=== PATIENT | female | born 1955 | race Caucasian/White ===

== ENCOUNTER 2018-04-23 00:42 | Observation (INO) | payer OTHER ==
[~2018-04-23] VITALS: Ht 167.6 cm; Wt 85.3 kg
[2018-04-23 00:47] VITALS: BP 149/88
[2018-04-23] MEDS ORDERED: EFFEXOR XR75 MG PO (00:55)
[2018-04-23] MEDS ORDERED: LISINOPRIL10 MG PO (00:55)
[2018-04-23] MEDS ORDERED: MOBIC7.5 MG PO (00:55)
[2018-04-23] MEDS ORDERED: AMBIEN 5 MG TABL5 M1 PO (00:56)
[2018-04-23 01:13] LABS: URINE BILIRUBIN NEGATIVE (Negative); URINE BLOOD TRACE (Negative); URINE CLARITY CLEAR; URINE COLOR YELLOW; URINE GLUCOSE-RANDOM NEGATIVE (Negative); URINE KETONES NEGATIVE (Negative); URINE LEUKOCYTES-REFLEX 3+ (Negative); URINE NITRITE-REFLEX NEGATIVE (Negative); URINE PROTEIN TRACE (Negative); URINE UROBILINOGEN 0.2 E.U./dl (0.2-1.0)
[2018-04-23 01:15] LABS: ABSOLUTE BASOPHILS 0.1 thou/uL (0.0-0.2); ABSOLUTE EOSINOPHILS 0.2 thou/uL (0.0-0.7); ABSOLUTE LYMPHOCYTES 2.4 thou/uL (0.8-5.3); ABSOLUTE MONOCYTES 0.6 thou/uL (0.0-1.2); ABSOLUTE NEUTROPHILS 6.9 thou/uL (1.6-8.1); EOSINOPHILS 1.9 %; HEMOGLOBIN 12.9 gm/dL (12.0-15.0); LYMPHOCYTES 23.3 %; MCH 30.8 pg (26.0-34.0); MCHC 34.7 g/dL (28.0-37.0); MCV 88.7 fL (80.0-100.0); MPV 7.6 fl. (7.2-11.1); NUCLEATED RBCS 0 /100WBC; PLATELET COUNT* 242 thou/uL (150-400); POLYS 67.8 %; RBC 4.17 mil/uL (4.20-5.00); RDW-CV 13.4 % (10.5-14.5); WBC 10.1 thou/uL (4.0-11.0)
[2018-04-23 01:23] LABS: ANION GAP 14 mmol/L (7-16); BUN 26 mg/dL (7-18); CALCIUM 9.2 mg/dL (8.5-10.1); CHLORIDE 104 mmol/L (98-107); CO2 21 mmol/L (21-32); CREATININE 1.1 mg/dL (0.6-1.3); GLUCOSE 139 mg/dL (70-99); SODIUM 139 mmol/L (136-145)
[2018-04-23 01:29] LABS: ALKALINE PHOSPHATASE 106 U/L (46-116); LIPASE 172 U/L (73-393); SGOT 17 U/L (15-37); SGPT 23 U/L (30-65); TOTAL BILIRUBIN 0.5 mg/dL (<0.1-1.0); TOTAL PROTEIN 7.1 g/dL (6.4-8.2); TROPONIN-I LEVEL <0.06 ng/mL (<0.06)
[2018-04-23 01:31] LABS: BACTERIA-REFLEX >30 Many /HPF (None Seen); CASTS None Seen /LPF (None Seen); CRYSTALS None Seen /LPF (None Seen); MUCUS 4-6 Moderate strn/LPF (None Seen); SQUAMOUS 0-3 Few /LPF (0-3); TRANSITIONAL EPITHEL CELL 0-3 Few /LPF (None Seen); URINE RBC 3-10 Few /HPF (0-2); WBC CLUMPS Few (None Seen)
[2018-04-23 03:50] VITALS: BP 145/79
[2018-04-23 03:55] VITALS: BP 156/86
[2018-04-23 08:00] VITALS: BP 145/88
[2018-04-23 15:10] VITALS: BP 111/70
--- NOTE | 2018-04-23 15:20 | EKG ---
[place] [address] ELECTROCARDIOGRAM REPORT Name: NELY SALES Room: [address] IN [facility].#: [id number] Admission: 04/23/18 Attend Phys: Erich Suarez MD Discharge: Date of : 55 Report #: [id number] THIS REPORT FOR: //name// [facility] ED Test Date: 2018-04-23 Test Time: 01:14:00 Pat Name: NELY SALES Department: Room: Gender: Gra[employer] Leader: [place] : 1955 Requested By: Juan Manuel Baca Order Number: [id number] MD: Guero Key Measurements Intervals [place] Rate: 88 P: 68 RI: 139 QRS: 33 QRSD: 85 T: 34 QT: 365 QTc: 442 Interpretive Statements Sinus rhythm Atrial premature complex Compared to ECG 08/30/2009 19:04:42 Atrial premature complex(es) now present Electronically Signed On 04-23-2018 15:20:44 CDT by Guero Key [email or web address] <ELECTRONICALLY SIGNED> By: Guero Key MD, [facility] 04/23/18 1520 [id number] Guero Key MD, [facility] /EPI
[2018-04-23] MEDS ORDERED: FLOMAX0.4 MG PO (17:47)
[2018-04-23] MEDS ORDERED: CIPRO500 MG PO (17:52)
[2018-04-23] MEDS ORDERED: NORCO 5-325 TA1 EACH PO (17:55)
[2018-04-23 17:57] VITALS: BP 111/70
--- NOTE | 2018-04-24 17:57 | CON ---
[address] [address] CONSULTATION Name: NELY SALES Room: [address] Angela#: [id number] Admission: 04/23/18 Attend Phys: Erich Suarez MD Discharge: 04/23/18 Date of : 55 Report #: [id number] THIS REPORT FOR: //name// CC: Erich Briones DATE OF SERVICE: 04/23/2018 REFERRING PHYSICIAN: Dr. Uribe. REASON FOR CONSULTATION: Right distal ureteral calculus and flank pain. HISTORY OF PRESENT ILLNESS: This is a 62-year-old female with no prior stone history. She had acute onset of right-sided flank and lower quadrant pain less than 24 hours ago, accompanied by frequency, urgency and stranguria. This was accompanied by nausea and vomiting. She presented to the Emergency Department and was diagnosed with a right distal ureteral calculus on CT scan. She was admitted for pain control and further management. Urology was consulted. She says she has been pain free for almost 12 hours with no pain medicine. She denies dysuria or gross hematuria. Denies fever or chills. Denies any other recent illness. She has had no prior kidney or urinary tract problems. PAST MEDICAL HISTORY: As above. She also has history of depression, hypertension, and arthritis. PAST SURGICAL HISTORY: Includes cholecystectomy. ALLERGIES: INCLUDE ERYTHROMYCIN. FAMILY HISTORY: She reports a half-sister has a history of stones. She does not know any other renal disease in the family. SOCIAL HISTORY: She denies use of tobacco or alcohol. She is and accompanied by her . REVIEW OF SYSTEMS: As per the history of present illness. No chest pain, shortness of breath, or palpitations. No weakness. PHYSICAL EXAMINATION: VITAL SIGNS: Temperature 36.5, pulse 86, respirations 16, blood pressure 111/70. GENERAL: This is a 62-year-old female, in no acute distress. She is awake, alert and oriented x 3. She answers questions appropriately. HEENT: Normocephalic, atraumatic. Extraocular movements are intact. Oropharynx is clear. NECK: [place] [address] CONSULTATION Name: NELY SALES Room: [address]#: [id number] Admission: 04/23/18 Attend Phys: Erich Suarez MD Discharge: 04/23/18 Date of : 55 Report #: [id number] RESPIRATORY: Effort and excursion are normal. CARDIAC: Rhythm is regular. ABDOMEN: Soft, nontender, nondistended. Bladder is nontender and nonpalpable. Spine and costovertebral angles are nontender. Exam does not reproduce her symptoms. EXTREMITIES: Warm. Moves all extremities well. No peripheral edema. Radial pulses are palpable. LABORATORY DATA: Include sodium 139, potassium 3.0, chloride 104, CO2 of 21, BUN 6, creatinine 1.1, glucose 139. Hemoglobin 12.9, platelet count 242,000, white count 10.1. Urinalysis reveals 3-10 red cells, 16-25 white cells, greater than 30 bacteria and some epithelial cells, possibly representing contaminant. Culture on that is pending. She has been started on Cipro empirically. Contrast CT scan of the abdomen and pelvis revealed a 3 mm right ureterovesical junction calculus with some perinephric stranding and fluid consistent with forniceal rupture and extravasation. DISCUSSION: Findings were discussed with the patient. We discussed options for management including inpatient versus outpatient medical expulsive therapy, inpatient versus outpatient ureteroscopic stone manipulation and stent placement, outpatient shockwave lithotripsy. Pros and cons of these approaches were discussed. We discussed the probability of passage of a 3 mm distal ureteral calculus. After discussion and opportunity for her and her to answer questions, she has elected medical expulsive therapy and hopes to do this as an outpatient. She is okay for discharge from a urologic standpoint. I will write prescriptions for Flomax as well as a 3-day course of Cipro pending culture results and Pimento for pain control. I advised her to return for problems with poor pain control, vomiting, fever or other concerns. Otherwise, we will work on setting up outpatient followup in the next week or so in the office. IMPRESSION: Right distal ureteral calculus, 3 mm diameter, and flank pain. PLAN: Medical expulsive therapy. I will defer management of her hypokalemia to the primary service. <ELECTRONICALLY SIGNED> By: Guero Crooks MD 04/24/18 1757 [id number] [id number] Crooks MD /jose
== END 2018-04-23 18:45 | disposition home or self-care (01) ==
LOC: M.ERS 00:42 → M.ORTHSURG 03:15 → M.TBA-ER 03:15 → M.ORTHSURG 03:46
PROVIDERS: Family Medicine; ADMIT Internal Medicine
DX: N13.2 Hydronephrosis with renal and ureteral calculous obstruction (principal); N39.0 Urinary tract infection, site not specified; E87.6 Hypokalemia; I10 Essential (primary) hypertension; E86.0 Dehydration; F32.9 Major depressive disorder, single episode, unspecified; M19.90 Unspecified osteoarthritis, unspecified site; F41.9 Anxiety disorder, unspecified; Z90.49 Acquired absence of other specified parts of digestive tract